=== PATIENT | female | born 1990 ===

== ENCOUNTER 2018-04-20 20:04 | Emergency (ER) | payer OTHER ==
--- NOTE | 2018-04-20 21:04 | UC ---
Neck Pain HPI - HPI Summary HPI Summary: 28-year-old male comes to clinic with a chief complaint of throat pain and swelling. Patient noticed discomfort and swelling there for almost a year. Its gradually getting worse. It hurts to swallow. No shortness of breath no fevers no chills. Patient's never had his thyroid checked. He is a former smoker. No shortness of breath. - History of Current Complaint Chief Complaint: UCGeneralIllness Stated Complaint: THROAT PAIN Time Seen by Provider: 04/20/18 20:49 Pain Intensity: 7 - Allergies/Home Medications Allergies/Adverse Reactions: Allergies Allergy/AdvReac Type Severity Reaction Status Date / Time amoxicillin Allergy Unknown Verified 04/20/18 20:39 Reaction Details Penicillins Allergy Unknown Verified 04/20/18 20:39 Reaction Details shellfish derived Allergy Unknown Verified 04/20/18 20:39 Reaction Details Home Medications: Home Medications Estradiol TAB(NF) 3 mg PO DAILY 04/20/18 [History Confirmed 04/20/18] Spironolactone TAB* [Aldactone TAB 25 MG*] 200 mg PO DAILY 04/20/18 [History Confirmed 04/20/18] PMH/Surg Hx/FS Hx/Imm Hx Previously Healthy: Yes - Surgical History Surgical History: None - Family History Known Family History: Positive: Non-Contributory - Social History Alcohol Use: Occasionally Substance Use Type: None Smoking Status (MU): Former Smoker Review of Systems All Other Systems Reviewed And Are Negative: Yes Constitutional: Positive: Negative Skin: Positive: Negative Eyes: Positive: Negative ENT: Positive: Sore Throat Respiratory: Positive: Negative Cardiovascular: Positive: Negative Gastrointestinal: Positive: Negative Motor: Positive: Negative Neurovascular: Positive: Negative Musculoskeletal: Positive: Negative Neurological: Positive: Negative Psychological: Positive: Negative Is Patient Immunocompromised?: No Physical Exam Triage Information Reviewed: Yes Appearance: Well-Appearing, No Pain Distress, Well-Nourished Vital Signs: Initial Vital Signs Temp 98.3 F 04/20/18 20:32 Pulse 114 04/20/18 20:32 Resp 16 04/20/18 20:32 BP 148/96 04/20/18 20:32 Pulse Ox 99 04/20/18 20:32 Vital Signs Reviewed: Yes Eye Exam: Normal Eyes: Positive: Conjunctiva Clear ENT: Positive: Pharynx normal, TMs normal, Uvula midline. Negative: Trismus, Muffled voice, Hoarse voice Neck: Positive: Supple, Other: - Mild prominence b/l at the level of the hyoid bone. Respiratory: Positive: Lungs clear, Normal breath sounds, No respiratory distress Cardiovascular: Positive: Tachycardia Neurological Exam: Normal Neurological: Positive: Alert, Muscle Tone Normal Psychological Exam: Normal Psychological: Positive: Age Appropriate Behavior Skin Exam: Normal Neck Pain Course/Dx - Course Course Of Treatment: Patient Name: TRAVIS ECHAVARRIA Medical Record#: [id number]. Ordering Physician: Jonathan Vargas MD Acct.#: [id number]. : 1990 Age: 28 Sex: M Location: [facility]. Exam Date: 04/20/182056 ADM Status: REG ER. Order Information: CT SOFT TISSUE NECK W/O. Accession Number: [id number]. CPT: 80504. EXAM: CT Neck Without Contrast. EXAM DATE/ TIME: 04/20/2018 9:16 PM. CLINICAL HISTORY: 28 years old, male; Pain; Throat pain; Patient HX: Throat pain for 1 year. painful to eat drink and break. Burning sensation right side of throat with. hard nodules on both sides. ; Additional info: Pain/swelling anterior neck at. level of hyoid. TECHNIQUE: Axial computed tomography images of the neck without contrast. All CT scans at this facility use at least one of these dose optimization. techniques: automated exposure control; mA and/or kV adjustment per patient. size ( includes targeted exams where dose is matched to clinical indication); or. iterative reconstruction. Coronal and sagittal reformatted images were created and reviewed. COMPARISON: No relevant prior studies available. FINDINGS: Sinuses: Rounded mucosal thickening in the left maxillary sinus. Oropharynx: Normal. No significant tonsillar enlargement. Larynx: The epiglottis is normal. Submandibular/Parotid glands: Normal. Glands are normal in size. Thyroid: Normal. No enlarged or calcified nodules. Lymph nodes: Small submandibular nodes which are within normal limits. Lungs: Normal as visualized. Vasculature: No acute findings. Bones/joints: Normal. No acute fracture. Soft tissues: Normal. No significant soft tissue swelling. IMPRESSION: 1. Small retention cyst in the left maxillary sinus. 2. Otherwise negative CT soft tissue neck. To contact [facility] with a general question: [facility] - [phone]. For direct physician to physician contact: Physician Hotline - [phone]. [facility] ([facility] Facility ID #[id number]). . <Electronically signed by Julio Garcia MD in OV> 04/20/18 0472. I discussed the CT report with the patient. The overall plan is a referral to ear nose and throat for the chronic anterior neck pain. - Differential Dx/Diagnosis Provider Diagnosis: Throat pain, Neck pain Discharge - Sign-Out/Discharge Documenting (check all that apply): Patient Departure All imaging exams completed and their final reports reviewed: No Studies - Discharge Plan Condition: Stable Disposition: HOME Patient Education Materials: Neck Pain (ED) Referrals: [facility] [Outside] Bob Marrero MD [Medical Doctor] - Additional Instructions: FOLLOW UP WITH ENT. GET RECHECKED FOR ANY WORSENING OF YOUR CONDITION OR QUESTIONS OR CONCERNS. - Billing Disposition and Condition Condition: STABLE Disposition: Home
[2018-04-21 11:29] LABS: ABS Basophils 0 10^3/ul (0-0.2); ABS Eosinophils 0.4 10^3/ul (0-0.6); ABS Lymphocytes 3.2 10^3/ul (1.0-4.8); ABS Monocytes 0.8 10^3/ul (0-0.8); ABS Neutrophils 5.4 10^3/ul (1.5-7.7); ABS Nucleated RBC 0 10^3/ul; Eosinophil % 4.5 %; Hematocrit 41 % (42-52); Lymphocyte % 32.6 %; Mean Corpuscular HGB Conc 35 g/dl (31-36); Mean Corpuscular Hemoglobin 30 pg (27-31); Mean Corpuscular Volume 87 fL (80-94); Mean Platelet Volume 7.7 fL (7.4-10.4); Nucleated Red Blood Cells % 0; Platelet Count 412 10^3/ul (150-450); Red Blood Count 4.67 10^6/ul (4.00-5.40); Red Cell Distribution Width 12 % (10.5-15)
[2018-04-21 11:36] LABS: Calcium 9.8 mg/dL (8.6-10.3); Potassium 4.1 mmol/L (3.5-5.0); Total Bilirubin 0.4 mg/dL (0.2-1.0)
[2018-04-21 11:42] LABS: Albumin/Globulin Ratio 2.1 (1-3); BUN/Creatinine Ratio 17.6 (8-20); EGFR African American 154.7 (>60); EGFR Non-African American 127.9 (>60); Globulin 2.4 g/dL (2-4); Total Protein 7.4 g/dL (6.4-8.9)
[2018-04-21 12:04] LABS: TSH (Thyroid Stimulating Horm) 2.9 mcIU/mL (0.34-5.60)
== END 2018-04-20 22:27 | disposition home or self-care (01) ==
LOC: EDSEX 20:04 → UCEAST 20:04
DX: J02.9 Acute pharyngitis, unspecified (principal); M54.2 Cervicalgia; Z88.0 Allergy status to penicillin; Z88.1 Allergy status to other antibiotic agents; Z87.891 Personal history of nicotine dependence
CPT/HCPCS: 36415; 70490; 80053; 84443; 85025; 99201; G0463